=== PATIENT | female | born 1955 | race Caucasian/White ===

== ENCOUNTER → 2016-08-24 | Outpatient (CLI) | payer BC ==
--- NOTE | 2016-08-24 14:16 | US ---
EXAMINATION TYPE: US venous doppler duplex LE RT DATE OF EXAM: 08/24/2016 1:48 PM COMPARISON: NONE CLINICAL HISTORY: Right calf pain with ankle swelling with right ankle fracture from one week ago aft er falling on stairs and suffering injury to both legs. SIDE PERFORMED: Right VESSELS IMAGED: Common Femoral Vein Deep Femoral Vein Greater Saphenous Vein * Femoral Vein Popliteal Vein Small Saphenous Vein * Proximal Calf Veins (* superficial vessels) TECHNOLOGIST IMPRESSION: Tech findings called to Dr Peterson/ nurses voicemail at exam's end. Right Leg: Negative for DVT No popliteal fossa lesion is seen. IMPRESSION: This examination is negative for DVT within the right leg.
== END | disposition home or self-care (01) ==
LOC: RADUSWWP 12:49
PROVIDERS: ATTEND Orthopaedic Surgery
DX: M25.571 Pain in right ankle and joints of right foot (principal)

== ENCOUNTER → 2020-06-15 | Outpatient (CLI) | payer MEDICAID ==
[2020-06-15 17:47] LABS: Chol/HDL Ratio 2.75; LDL Cholesterol,Calculated 113.4 mg/dL (0.0-131.0); VLDL Calculation 17.6 mg/dL (5.00-40.00)
== END | disposition home or self-care (01) ==
LOC: LABWHC1 09:16
PROVIDERS: ATTEND Internal Medicine
DX: I10 Essential (primary) hypertension (principal); M85.89 Other specified disorders of bone density and structure, multiple sites; E55.9 Vitamin D deficiency, unspecified
CPT/HCPCS: 36415; 80061; 82306; 83970; 84443